=== PATIENT | male | born 1990 | race Caucasian/White ===

== ENCOUNTER 2025-01-21 11:04 | Outpatient (AMB) | payer BC, SELFPAY ==
--- NOTE | 2025-01-21 11:13 | MHC.PC.OV ---
Vital Signs 01/21/25 11:34 01/21/25 11:53 Height 5 ft 10 in Weight 295 lb 2 oz BMI 42.3 BP 138/88 128/82 Blood Pressure Location Rt brachial Rt brachial Position Sitting Sitting Pulse 121 H 104 H Pulse Source Pulse Oximeter Auscultation Temp 97.8 F Temp Source Oral Pulse Oximetry (%) 99 Oxygen Delivery Method Room Air Intake Visit Reasons: CREDIT VERIFICATION CLERK-PE Intake Note: Leo presents in the office today to establish care. Named Account Executive Required: No Allergies lavender (Lavandula angustifolia) Allergy (Mild, Verified 01/21/25 11:40) Sneezing Seasonal Allergies Allergy (Mild, Verified 01/21/25 11:40) Itchy throat Medication List - Last Reconciled 01/21/25 by Danielle Martinez CNP 5-hydroxytryptophan (5-HTP) 50 mg PO BID ashwagandha extract mg PO cetirizine 10 mg PO DAILY PRN diphenhydramine HCl (Sleep Aid (diphenhydramine)) 25 mg PO BEDTIME PRN multivitamin (Daily Multi-Vitamin tablet) 1 tab PO DAILY omeprazole 20 mg PO DAILY Tobacco use date assessed: 01/21/25 Dental Screening Dental Screen Date: 01/21/25 Did you have a dental visit in the last 12 months?: No Did you have a dental problem in the last 6 months where you did not have access to dental care?: No Was dental information given to patient?: Yes HPI HPI Comments History of Present Illness Details 34-year-old male presents to establish care. Prior PCP? - [facility] Last office visit/CPE/labs - Over 10 years ago Acute issue(s) - Anxiety and depression. History of Zoloft as a teen and until 8 years ago. He sees a therapist weekly. He takes otc 5-hydroxytrypptophan twice daily for anxiety and depression and otc ashwagandha extract for anxiety and stress management. He notes that his anxiety and depressive symptoms have been well controlled. He has history of inpatient admission, once in 2017, and was diagnosed situational anxiety and depression due to personal and family issues. - Acid Reflux. He is on omeprazole 20 mg daily. - Seasonal allergy. He is on cetirizine 10 mg daily and benadryl as needed. Past Medical History - Seasonal allergies, acid reflux, white coat syndrome, dislocated/avulsion fracture right index finger (2023), situational anxiety and depression (diagnosed in 2017) Surgical History - Tonsillectomy, adenectomy Family History - Dad: HTN, hyperlipidemia, cardiovascular disease, asthma, alcoholism, bipolar disorder - Mom: Hypertension, diabetes, breast cancer - MGM: Breast cancer, lung cancer Social History - Former smoker, smoked 2 packs weekly for 11.5 yr and quit 8-10 years ago. Does not vape. Drinks 1 can of malt beverage nightly. Consumes occasional cannabis gummies - Has been making healthy dietary choices. Exercises routinely. Reports h/o difficulty falling asleep but recently experiencing difficulty falling and staying asleep; he attributes poor sleep to his mattress which he is changing soon. He notes that he only snores when he is ill. He has never had a sleep study done. Health maintenance - Last eye exam was 6 years ago. Referred to Ophthalmology for routine eye care - Last dental visit was 15 years ago; encouraged to schedule an appointment with his dentist for routine dental care - Last tetanus vaccine was when 19 or 20 years old; vaccine recommended; he will consider getting the vaccine - Has not been vaccinated for the flu this season; declines vaccination [facility] Surgical History (Updated 01/21/25 @ 12:39 by Sara Esparza CMA) [place] teeth removed S/P tonsillectomy and adenoidectomy Family History (Updated 01/21/25 @ 12:41 by Sara Esparza CMA) Father Asthma Hypertension Hyperlipemia Cardiovascular disease Alcoholism FHx: mental illness Mother Hypertension Diabetes Breast cancer Brother Hypertension Bipolar 1 disorder Schizo affective schizophrenia Maternal Grandmother Breast cancer Lung cancer Social History (Updated 01/21/25 @ 11:26 by Helen Ojeda MA) Housing: Apartment Alcohol intake: current Patient Tobacco Use Status: Former Tobacco user Cigarettes Per Day: 2 Years Smoked: 1 year e-Cigarette/Vaping Use: Never Used Second Hand Smoke Exposure: No Substance Use Type: Marijuana service: No Current occupational status: employed Current occupation: [employer] Education Current occupational exposures/hazards: No Cognitive needs: No Hearing needs: No Vision needs: No Questionnaire PHQ-9 Over the last 2 weeks, how often have you been bothered by any of the following problems? 1. Little interest or pleasure in doing things: not at all 2. Feeling down, depressed, or hopeless: not at all 3. Trouble falling or staying asleep, or sleeping too much: more than half the days 4. Feeling tired or having little energy: several days 5. Poor appetite or overeating: not at all 6. Feeling bad about yourself - or that you are a failure or have let yourself or your family down: not at all 7. Trouble concentrating on things, such as reading the newspaper or watching television: several days 8. Moving or speaking so slowly that other people could have noticed. Or the opposite - being so fidgety or restless that you have been moving around a lot more than usual: not at all 9. Thoughts that you would be better off or of hurting yourself in some way: not at all Total score: 4 Depression Screening Interpretation: Negative Depression Screening Done: Yes 83171 - PHQ-9 Billing: Patient declined-do not bill Source: Developed by Drs. Arley De Luna, Ava Smith, Ivan Orozco and colleagues, with an educational bill from [employer]. Thrive Questionnaire Date Thrive assessed: 01/21/25 I am a: Patient What is your living situation today?: I have a steady place to live Within the past 12 months, did the food you bought not last and you didn't have the money to get more?: Often true Within the past 12 months, did you worry whether your food would run out before you got money to buy more?: Never true Do you have trouble paying for medicines?: No Do you have trouble getting transportation to medical appointments?: No Do you have trouble paying your heating and electricity bill?: No Do you have trouble taking care of your child, family member or friend?: No Do you have trouble with day-to-day activities such as bathing, preparing meals, shopping, managing finances, etc.?: No Are you currently unemployed and looking for a job?: No Are you interested in more education?: Yes Please select the resources that you would like help with: Childcare Currently or been in a relationship where the following occur: Controlled Emotionally THRIVE Score: 2 AUDIT C Alcohol Use Questionnaire (AUDIT-C) 1. How often do you have a drink containing alcohol?: 2-3 times a week 2. How many drinks containing alcohol do you have on a typical day when you are drinking?: 1 or 2 3. How often do you have six or more drinks on one occasion?: Less than monthly Total Score: 4 Score Reviewed/Action Taken: No DIONICIO-7 AMB Questionnaire DIONICIO-7 Date DIONICIO - 7 assessed: 01/21/25 Feeling nervous, anxious, or on edge: 1 = Several days Not being able to stop or control worryin = Several days Worrying too much about different things: 1 = Several days Trouble relaxin = Several days Being so restless that it is hard to sit still: 0 = Not at all Becoming easily annoyed or irritable: 1 = Several days Feeling afraid as if something awful might happen: 0 = Not at all Total DIONICIO-7 score (0-4 normal; 5-9 mild; 10-14 moderate; 15-21 severe): 5 Source: Developed by Drs. Arley De Luna, Ava Simth, Ivan Orozco and colleagues, with an educational bill from [employer]. DIONICIO-7 Assessment Billing DIONICIO-7 Assessment Tool: DIONICIO-7 Assessment 39938 Review of Systems Const Details: Denies chills, Denies fatigue, Denies fever(s), Denies headache(s) and Denies weakness HEENT Denies change in vision, Denies dizziness, Denies headache(s), Denies hearing loss, Denies nasal congestion, Denies sinus pain, Denies sinus pressure and Denies sore throat Card Denies chest pain, Denies lightheadedness, Denies dyspnea and Denies other (palpitations) Resp Denies cough, Denies dyspnea and Denies wheezing GI Denies abdominal pain, Denies melena, Denies hematochezia, Denies change in bowel habits, Denies dyspepsia and Denies nausea Denies hematuria and Denies dysuria Musc Denies abnormal gait, Denies myalgias, Denies arthralgias, Denies numbness and Denies tingling Skin/Breast Denies rash, Denies unusual bruising and Denies wounds Neuro Denies abnormal gait, Denies dizziness, Denies headache(s), Denies memory loss, Denies numbness, Denies Sensory deficit (Neuro), Denies tingling and Denies weakness Psych Denies anxiety, Denies depression and Denies memory loss Endo Denies cold intolerance, Denies fatigue, Denies heat intolerance, Denies polydipsia and Denies polyuria Scott/Lymph Denies easy bleeding and Denies easy bruising Aller/Immun Denies wheezing Physical exam (Primary Care) Vital Signs: Last Vital Signs Temp 97.8 F 01/21/25 11:34 Pulse 104 H 01/21/25 11:53 BP 128/82 01/21/25 11:53 Pulse Ox 99 01/21/25 11:34 Oxygen Delivery Method Room Air 01/21/25 11:34 BMI result Body Mass Index 42.3 Tobacco/Smoking Status: Tobacco use Status Tobacco use date assessed 01/21/25 01/21/25 11:38 Patient Tobacco Use Status Former Tobacco user 01/21/25 11:38 e-Cigarette/Vaping Use Never Used 01/21/25 11:38 PHQ-9: PHQ-9 Score PHQ-9: Total score 4 01/21/25 12:43 Depression Screening Interpretation: Negative Thrive Assessment: Date of Thrive Assessment Date Thrive assessed 01/21/25 01/21/25 11:14 Currently or been in a relationship where the following occur: Controlled Emotionally Const Other: General: no acute distress, well developed, alert and awake Nutritional Appearance: well nourished Orientation/consciousness: patient oriented x3 HENMT Head: Yes normocephalic and Yes atraumatic Ears: hearing grossly normal bilaterally and TM's normal bilaterally General nose exam: Normal external nose present and Normal nares present Mouth: Normal oral and palatal mucosa present and moist mucous membranes Teeth and gingiva: dentition normal Throat: Yes oropharynx normal Eyes Pupils: Equal, round and reactive pupils present and Pupil accommodation reflex normal EOM: EOMs intact bilaterally Neck Neck: Yes normal visual inspection, Yes no lymphadenopathy and Yes trachea midline Thyroid: Thyroid normal Carotids: no bruits Lymphatic: no lymphadenopathy noted Chest Chest palpation & inspection: normal inspection of the chest Resp Effort & Inspection: normal respiratory effort Auscultation: clear to auscultation bilaterally Cardio Rate: regular rate Rhythm: regular rhythm Heart sounds: S1 normal heart sound present, S2 normal heart sound present, no gallops, no murmurs and no rubs Bruits: no abdominal aortic bruits and no carotid bruits GI Palpation (GI): No Abdominal aortic bruit present, Soft to palpation, nontender, No hepatosplenomegaly present and No Rebound tenderness present Auscultation: normal bowel sounds General: Yes no CVA tenderness Back/Spine/Pelvis Back: no CVA tenderness Cervical Spine: cervical ROM normal and No Cervical spine tenderness Thoracic/Lumbar Spine: thoraco-lumbar ROM normal, No pain with thoraco-lumbar ROM, No thoracic spinal tenderness and No lumbar spinal tenderness Skin General: warm and dry. Normal skin color. Normal skin turgor Lesions: no lesions Rashes: no rashes Trauma: no lacerations or abrasions Wounds: no wounds Nails: normal Neuro General: patient oriented x3, gait normal and CN's II-XI intact bilaterally Cranial nerves: Yes Equal, round and reactive pupils present Cognition (Neuro): normal cognition Gait exam (Neuro): Normal gait present Motor exam (neuro): 5/5 motor strength present throughout Sensory Exam: No Sensory deficit (Neuro) Deep tendon reflexes (DTR's): Right patellar reflex intensity grade: 2+ and Left patellar reflex intensity grade: 2+ Extrem General: Yes normal to inspection, No edema and No calf tenderness Psych Appearance: grossly normal Affect: normal affect Attitude: cooperative Thought process: Normal thought process present Coding Level of Care Code New Pt Level 3 (19002) New Pt Prev Care 18-39yr(10491 Diagnoses Normal physical examination, routine Z00.00 Morbid obesity with BMI of 40.0-44.9, adult E66.01; Z68.41 Sleep disturbance G47.9 Eye exam, routine Z01.00 Anxiety and depression F41.9; F32.A Acid reflux K21.9 Laboratory tests ordered as part of a complete physical exam (CPE) Z00.00 Additional Codes DIONICIO-7 Assessment Billing - DIONICIO-7 Assessment Tool: DIONICIO-7 Assessment 68853 ([id number]) Assessment & Plan Assessment & Plan (1) Normal physical examination, routine: Code(s): Z00.00 - Encounter for general adult medical examination without abnormal findings Category: Medical Plan: No significant functional limitations noted. Advised to perform lab work and follow-up for telehealth visit for labs review in 2-3 weeks. Return sooner with symptoms or concerns. Verbalized understanding and agreed with the plan. (2) Morbid obesity with BMI of 40.0-44.9, adult: Code(s): E66.01 - Morbid (severe) obesity due to excess calories; Z68.41 - Body mass index [BMI] 40.0-44.9, adult Category: Medical Plan: He currently weighs 295 lb, BMI is 42.3. He has been making healthy dietary choices and exercising routinely. Encouraged to continue healthy lifestyle changes. Referred to weight management clinic as requested. Follow-up as needed. Verbalized understanding and agreed with the plan. (3) Sleep disturbance: Code(s): G47.9 - Sleep disorder, unspecified Category: Medical Plan: He has history of difficulty falling asleep but recently experiencing difficulty falling and staying asleep; he attributes poor sleep to his mattress which he is changing soon. He notes that he only snores when he is ill. He has never had a sleep study done. Instructed on sleep hygiene. Referred to sleep medicine for sleep study. (4) Eye exam, routine: Code(s): Z01.00 - Encounter for examination of eyes and vision without abnormal findings Category: Medical Plan: His last eye exam was 6 years ago. Referred to Ophthalmology for routine eye care. (5) Anxiety and depression: Code(s): F41.9 - Anxiety disorder, unspecified; F32.A - Depression, unspecified Category: Medical Plan: He notes that his anxiety and depressive symptoms have been well controlled. History of Zoloft as a teen and until 8 years ago. He sees a therapist weekly. He takes otc 5-hydroxytrypptophan twice daily for anxiety and depression and otc ashwagandha extract for anxiety and stress management. He has history of inpatient admission, once, in 2017, and was diagnosed situational anxiety and depression due to personal and family issues. DIONICIO-7 score revealed mild anxiety. PHQ-9 score is normal. Continue current treatment regimen. Routine exercise encouraged. Follow-up as needed. Verbalized understanding and agreed with the treatment plan. (6) Acid reflux: Code(s): K21.9 - Gastro-esophageal reflux disease without esophagitis Category: Medical Plan: No acute symptoms. Continue to take omeprazole as prescribed. (7) Laboratory tests ordered as part of a complete physical exam (CPE): Code(s): Z00.00 - Encounter for general adult medical examination without abnormal findings Category: Medical Plan: Fasting labs ordered as part of a complete physical exam. Advised to fast for at least 10 hours before getting labs drawn. May drink water Verbalized understanding and agreed with treatment plan. Orders: Orders Complete Blood Count Auto Diff Today Z00.00 - Encounter for general adult medical examination without abnormal findings Comprehensive [place]. Panel Fast Today Z00.00 - Encounter for general adult medical examination without abnormal findings Lipid Panel Today Z00.00 - Encounter for general adult medical examination without abnormal findings UA CC w/rflx Micro + Cult Today Z00.00 - Encounter for general adult medical examination without abnormal findings Microalbumin, Random (w Creat) Today Z00.00 - Encounter for general adult medical examination without abnormal findings TSH reflex Free T4 Today Z00.00 - Encounter for general adult medical examination without abnormal findings Vitamin D 25-OH Total Today Z00.00 - Encounter for general adult medical examination without abnormal findings Referrals Sleep Medicine Referral G47.9 - Sleep disorder, unspecified Medical Weight Management Referral E66.01 - Morbid (severe) obesity due to excess calories, Z68.41 - Body mass index [BMI] 40.0-44.9, adult Ophthalmology Referral Z01.00 - Encounter for examination of eyes and vision without abnormal findings
[2025-01-21 11:34] VITALS: BP 138/88; PULSE 121; TEMP 36.6; O2SAT 99; BMI 42.3
[2025-01-21 11:53] VITALS: BP 128/82; PULSE 104
--- OUTSIDE RECORDS SUMMARY | 2025-01-21 13:28 | XMS_ITS | Clinical Summary ---
Author Organization [facility] Address [address] [place] [address] Phone Care Team Providers Care Silver Buffer Name Role Phone Unavailable Primary Care Provider Unavailabl e Social History Tobacco Use Types Packs/Day Years Used Date Smoking Tobacco: Never Assessed Sex and Gender Information Value Date Recorded Sex Assigned at Not on file Legal Sex Male 6:09 PM EDT Gender Identity Not on file Sexual Orientation Not on file Plan of Treatment Health Maintenance Due Date Last Done Comments MMR Vaccines (1 of 1 - Stand natacha series) 02/18/1993 Varicella Vaccines (1 of 2 - 13+ 2-dose series) 02/18/2005 DTaP,Tdap,and Td Vaccines (1 - Tdap) 02/18/2010 Hepatitis B Vaccines (1 of 3 - 19+ 3-dose series) 02/18/2011 Influenza Vaccines (#1) 2024 COVID-19 Vaccine (2023-2 5 season) 2024 HIB Vaccines Aged Out No longer eligi ble based on patient's age to complete this topic HPV Vaccines Aged Out No longer eligi ble based on patient's age to complete this topic Hepatitis A Vaccines Aged Out No long er eligible based on patient's age to complete this topic IPV Vaccines Aged Out No longer eligi ble based on patient's age to complete this topic Men B Vaccine Aged Out No longer elig ible based on patient's age to complete this topic Meningococcal Vaccine Aged Out No eric haja eligible based on patient's age to complete this topic Pneumococcal Vaccine Aged Out No long er eligible based on patient's age to complete this topic
== END 2025-01-21 12:17 | disposition home or self-care (01) ==
PROVIDERS: PCP Nurse Practitioner Family; Visit Provider Nurse Practitioner Family
DX: Z00.00 Encounter for general adult medical examination without abnormal findings (principal); G47.9 Sleep disorder, unspecified; E66.01 Morbid (severe) obesity due to excess calories; Z68.41 Body mass index [BMI] 40.0-44.9, adult; F41.9 Anxiety disorder, unspecified; F32.A Depression, unspecified; K21.9 Gastro-esophageal reflux disease without esophagitis

== ENCOUNTER → 2025-01-21 11:04 | Outpatient (BNVA) | payer BC, SELFPAY | PROVIDERS: PCP Nurse Practitioner Family; Visit Provider Nurse Practitioner Family | DX: Z00.00 Encounter for general adult medical examination without abnormal findings (principal); E66.01 Morbid (severe) obesity due to excess calories; Z68.41 Body mass index [BMI] 40.0-44.9, adult; G47.9 Sleep disorder, unspecified; F41.9 Anxiety disorder, unspecified; F32.A Depression, unspecified; K21.9 Gastro-esophageal reflux disease without esophagitis | CPT/HCPCS: 96127 ==

== ENCOUNTER 2025-02-04 08:32 | Outpatient (REF) | payer BC, SELFPAY ==
--- OUTSIDE RECORDS SUMMARY | 2025-02-04 08:55 | XMS_ITS | Clinical Summary ---
Author Organization [facility] Address [address] [place] [address] Phone Care Team Providers Care Receptionist Telephone Operator Name Role Phone Unavailable Primary Care Provider [...]
[2025-02-04 11:27] LABS: MANUAL DIFF FLAG NO
[2025-02-04 11:35] LABS: Basophils Absolute Auto 0.1 X10*3/uL (0.0-0.2); Basophils Percent Auto 0.8 % (0-2); Eosinophils Absolute Auto 0.5 X10*3/uL (0.0-0.4); Eosinophils Percent Auto 3.8 % (0-4); Hematocrit 45.2 % (42.0-52.0); Imm Gran Abs Auto 0.08 X10*3/uL (0.00-0.03); Imm Gran Pct Auto 0.6 % (0.0-0.4); Lymphocytes Absolute Auto 4.3 X10*3/uL (1.2-4.9); Lymphocytes Percent Auto 31.3 % (20-40); Mean Corpuscular HGB Conc 33.2 g/dl (31.0-36.0); Mean Corpuscular Hemoglobin 28.5 pg (27.0-33.0); Mean Corpuscular Volume 85.9 fL (80.0-98.0); Monocytes Percent Auto 7.3 % (2-11); Neutrophils Absolute Auto 7.8 x10*3/uL (2.0-8.3); Neutrophils Percent Auto 56.2 % (45-73); Platelet Count 404 X10*3/uL (160-400); Red Blood Count 5.26 X10*6/uL (4.60-5.80); White Blood Count 13.8 X10*3/uL (4.8-10.8)
[2025-02-04 11:37] LABS: Appearance Urine Clear; Color Urine Yellow; Glucose Urine UA Negative (Negative); Leukocyte Esterase Urine Trace (Negative); Nitrite Urine Negative (Negative); PH 8.5 (5.0-9.0); UMIC TRIGGER UACC YES; Urine Blood Negative (Negative); Urine Ketones Negative (Negative); Urine Protein Negative (Neg-Trace)
[2025-02-04 11:41] LABS: Bacteria Urine None Seen (None Seen); Hyaline Casts Urine 0-2 /LPF (0-2); RBC Urine 0-2 /HPF (0-2); Squamous Epithelial Cell Urine 0-2 /HPF (0-2); WBC Urine 0-5 /HPF (0-5)
[2025-02-04 12:16] LABS: HBS Num1 5.38 mIU/mL (0-7.99); HBc Num1 0.04 S/CO (0.00-0.79); HBsAGNum1 0.28 S/CO (0.00-0.99); Hepatitis B Core Antibody Nonreactive (Nonreactive); Hepatitis B Surface Antigen Negative (Negative); ~HepC Num1 0.07 S/CO (0.00-0.79); ~Hepatitis B Surface Antibody NONREACTIVE (Nonreactive); ~Hepatitis C Antibody Nonreactive (Nonreactive)
[2025-02-04 12:19] LABS: Alanine Aminotransferase 48 U/L (0-40); Albumin Level 4.3 g/dL (3.5-5.0); Alkaline Phosphatase 78 U/L (39-117); Anion Gap 12 (12-20); Aspartate Amino Transferase 38 U/L (5-37); Bilirubin Total 0.4 mg/dL (0.0-1.0); Blood Urea Nitrogen 9 mg/dL (9-16); Carbon Dioxide 27 mmol/L (22-29); Chloride 102 mmol/L (96-108); Cholesterol 171 mg/dL (<200); Estimated Glomerular Filt Rate > 60; Glucose Fasting 104 mg/dL (60-99); HDL Cholesterol 44 mg/dL (>40); LDL Cholesterol Calculated 103 mg/dL (<100); Potassium 3.6 mmol/L (3.3-5.1); Sodium 137 mmol/L (135-145); TSH reflex Free T4 1.56 uIU/mL (0.32-4.0); Total Protein 7.3 g/dL (6.5-8.0); Triglycerides 122 mg/dL (<150); Vitamin D 25-OH Total 78.5 ng/mL (>30)
[2025-02-04 12:35] LABS: Creatinine Urine 43.92 mg/dL; Microalbumin Urine < 5.0 mg/L
== END 2025-02-04 08:33 | disposition home or self-care (01) ==
LOC: HO.WFDLDS 08:32
PROVIDERS: Visit Provider Nurse Practitioner Family
DX: Z00.00 Encounter for general adult medical examination without abnormal findings (principal); Z71.85 Encounter for immunization safety counseling; Z13.6 Encounter for screening for cardiovascular disorders
CPT/HCPCS: 36415; 80053; 80061; 81001; 82043; 82306; 82570; 84443; 85025; 86704; 86706; 86735; 86762; 86765; 86803; 87340

== ENCOUNTER 2025-02-07 14:48 | Outpatient (AMB) | payer BC, SELFPAY ==
--- NOTE | 2025-02-07 14:39 | A.OFFPC_ITS ---
Intake Visit Reasons: Telehealth 2-3 wks labs review Intake Note: [facility] go over his most recent lab results. Allergies lavender (Lavandula angustifolia) Allergy (Mild, Verified 02/07/25 14:42) Sneezing Seasonal Allergies Allergy (Mild, Verified 02/07/25 14:42) Itchy throat Tobacco use date assessed: 02/07/25 Dental Screening Dental Screen Date: 02/07/25 Did you have a dental visit in the last 12 months?: No Did you have a dental problem in the last 6 months where you did not have access to dental care?: No Was dental information given to patient?: No HPI HPI Comments History of Present Illness Details 34-year-old male [facility] review of recent lab results. He offers no complaints and denies acute symptoms at this time. [facility] Surgical History (Updated 01/21/25 @ 12:39 by Sara Esparza CMA) [place] teeth removed S/P tonsillectomy and adenoidectomy Family History (Updated 01/21/25 @ 12:41 by Sara Esparza CMA) Father Asthma Hypertension Hyperlipemia Cardiovascular disease Alcoholism FHx: mental illness Mother Hypertension Diabetes Breast cancer Brother Hypertension Bipolar 1 disorder Schizo affective schizophrenia Maternal Grandmother Breast cancer Lung cancer Social History (Updated 01/21/25 @ 11:26 by Helen Ojeda MA) Housing: Apartment Alcohol intake: current Patient Tobacco Use Status: Former Tobacco user Cigarettes Per Day: 2 Years Smoked: 1 year e-Cigarette/Vaping Use: Never Used Second Hand Smoke Exposure: No Substance Use Type: Marijuana service: No Current occupational status: employed Current occupation: [employer] Current occupational exposures/hazards: No Cognitive needs: No Hearing needs: No Vision needs: No Questionnaire Thrive Questionnaire Date Thrive assessed: 02/07/25 I am a: Patient What is your living situation today?: I have a steady place to live Within the past 12 months, did the food you bought not last and you didn't have the money to get more?: Often true Within the past 12 months, did you worry whether your food would run out before you got money to buy more?: Never true Do you have trouble paying for medicines?: No Do you have trouble getting transportation to medical appointments?: No Do you have trouble paying your heating and electricity bill?: No Do you have trouble taking care of your child, family member or friend?: No Do you have trouble with day-to-day activities such as bathing, preparing meals, shopping, managing finances, etc.?: No Are you currently unemployed and looking for a job?: No Are you interested in more education?: Yes Please select the resources that you would like help with: Childcare Currently or been in a relationship where the following occur: Controlled Emotionally THRIVE Score: 2 AUDIT C Alcohol Use Questionnaire (AUDIT-C) 1. How often do you have a drink containing alcohol?: 4 or more times a week 2. How many drinks containing alcohol do you have on a typical day when you are drinking?: 1 or 2 3. How often do you have six or more drinks on one occasion?: Less than monthly Total Score: 5 Score Reviewed/Action Taken: Yes DIONICIO-7 AMB Questionnaire DIONICIO-7 Date DIONICIO - 7 assessed: 02/07/25 Source: Developed by Drs. Arley De Luna, Ava Smith, Ivan Orozco and colleagues, with an educational bill from [employer]. Review of Systems Const Details: Denies chills, Denies fatigue, Denies fever(s), Denies headache(s) and Denies weakness Cardiac Denies chest pain, Denies claudication, Denies leg edema, Denies lightheadedness, Denies palpitations, Denies dyspnea, Denies dyspnea on exertion, Denies orthopnea and Denies other (Loss of consciousness) Resp Denies cough, Denies excessive phlegm production, Denies dyspnea, Denies dyspnea on exertion, Denies snoring and Denies wheezing Physical exam (Primary Care) Tobacco/Smoking Status: Tobacco use Status Tobacco use date assessed 01/21/25 02/07/25 14:40 Patient Tobacco Use Status Former Tobacco user 02/07/25 14:40 e-Cigarette/Vaping Use Never Used 02/07/25 14:40 Thrive Assessment: Date of Thrive Assessment Date Thrive assessed 01/20/25 02/07/25 14:40 Currently or been in a relationship where the following occur: Controlled Emotionally Const Other: Patient is alert and oriented x4. Telehealth Telehealth Location of provider rendering services: practice address Location of patient: address on file Patient Identification confirmed using: Name, : Yes Telehealth method: voice only Patient verbally consented to treatment: Yes Patient verbally consented to billing insurance company: Yes Patient informed of any privacy concerns related to visit: Yes Coding Level of Care Code Tele Est Pt Level 3 (51437) Diagnoses Elevated fasting glucose R73.01 Transaminitis R74.01 Leukocytosis D72.829 Time Spent (min) 15 Assessment & Plan Assessment & Plan (1) Elevated fasting glucose: Code(s): R73.01 - Impaired fasting glucose Category: Medical Plan: Recent fasting glucose is slightly elevated, 104. Healthy diet and routine exercise encouraged. Will recheck fasting glucose and make changes as needed. Verbalized understanding and agreed with the plan. (2) Transaminitis: Code(s): R74.01 - Elevation of levels of liver transaminase levels Category: Medical Plan: Recent AST and ALT levels are slightly elevated, 38 and 48 respectively. Likely related to diet. Routine exercise and diet, including low-fat encouraged. Will recheck lipid panel levels in 2 months. Verbalized understanding and agreed with the plan. (3) Leukocytosis: Code(s): D72.829 - Elevated white blood cell count, unspecified Category: Medical Plan: Recent WBC is slightly elevated, 13.8. Will recheck WBC level and make changes as needed. Likely due to inflammatory response. Verbalized understanding and agreed with the plan. Orders: Orders Liver Panel 2 Months R74.01 - Elevation of levels of liver transaminase levels WBC ONLY Today D72.829 - Elevated white blood cell count, unspecified Glucose Fasting Today R73.01 - Impaired fasting glucose
--- OUTSIDE RECORDS SUMMARY | 2025-02-07 15:32 | XMS_ITS | Clinical Summary ---
Author Organization [facility] Address [address] [place] [address] Phone Care Team Providers Care Cyber Policy And Strategy Planner Name Role Phone Unavailable Primary Care Provider [...]
== END 2025-02-07 15:16 | disposition home or self-care (01) ==
LOC: HO.HMCFM 14:48
PROVIDERS: PCP Nurse Practitioner Family; Visit Provider Nurse Practitioner Family
DX: R73.01 Impaired fasting glucose (principal); R74.01 Elevation of levels of liver transaminase levels; D72.829 Elevated white blood cell count, unspecified

== ENCOUNTER → 2025-02-07 14:48 | Outpatient (BNVA) | payer BC, SELFPAY | PROVIDERS: PCP Nurse Practitioner Family; Visit Provider Nurse Practitioner Family | DX: R73.01 Impaired fasting glucose (principal); R74.01 Elevation of levels of liver transaminase levels; D72.829 Elevated white blood cell count, unspecified | CPT/HCPCS: 98967 ==